=== PATIENT | male | born 1990 | race Caucasian/White ===

== ENCOUNTER 2018-06-15 18:35 | Emergency (ER) | payer BC ==
[2018-06-15 18:50] VITALS: BP 135/75
[2018-06-15] MEDS ORDERED: Lidocaine 1% 30 ML SDV INJECT ONE (19:33)
[2018-06-15] MEDS ORDERED: Sulfamethoxazole/Trimethoprim 800-160 MG Tab PO ONE (19:45)
--- NOTE | 2018-06-15 19:48 | EDM.PDOC ---
ED HPI GENERAL MEDICAL PROBLEM - General Chief Complaint: Skin Complaint Stated Complaint: ABSCESS ON FACE Time Seen by Provider: 06/15/18 19:35 Source of Information: Reports: Patient History Limitations: Reports: No Limitations - History of Present Illness INITIAL COMMENTS - FREE TEXT/NARRATIVE: This 27 yo male patient reports to the ED with an abscess to the left side of his face. The patient reports he started noticing swelling 5 days ago. The patient reports he attempted to pop a pimple 5 days ago and has noticed increased swelling since that time. The patient reports his mother has a history of MRSA. Onset Date: 06/10/18 Duration: Constant, Getting Worse Location: Reports: Face Quality: Reports: Ache, Dull Severity: Moderate Improves with: Reports: None Worsens with: Reports: None Associated Symptoms: Reports: No Other Symptoms Treatments [employer]: Reports: Acetaminophen Left Face/Facial Pain Score (Numeric/FACES): 7 - Related Data Allergies Allergy/AdvReac Type Severity Reaction Status Date / Time No Known Allergies Allergy Verified 06/15/18 18:45 Home Meds: Home Meds Amphetamine/Dextroamphetamine [Adderall XR] 25 mg PO DAILY 06/15/18 [History] Past Medical History - Past Health History Medical/Surgical History: Denies Medical/Surgical History Psychiatric History: Reports: ADD Social & Family History - Family History Family Medical History: Noncontributory - Tobacco Use Smoking Status *Q: Current Every Day Smoker Years of Tobacco use: 5 Packs/Tins Daily: 0.2 - Caffeine Use Caffeine Use: Reports: Soda - Recreational Drug Use Recreational Drug Use: No - Living Situation & Occupation Living situation: Reports: with Family Occupation: Employed ED ROS GENERAL - Review of Systems Review Of Systems: ROS reveals no pertinent complaints other than HPI. ED EXAM, SKIN/RASH Exam: See Below Exam Limited By: No Limitations General Appearance: Alert, WD/WN, Mild Distress Eye Exam: Bilateral Eye: EOMI, Normal Inspection, PERRL Ears: Normal External Exam, Normal Canal, Hearing Grossly Normal, Normal TMs Nose: Normal Inspection, Normal Mucosa, No Blood Throat/Mouth: Normal Inspection, Normal Lips, Normal Teeth, Normal Gums, Normal Oropharynx, Normal Voice, No Airway Compromise Head: Atraumatic, Normocephalic Neck: Normal Inspection, Supple, Non-Tender, Full Range of Motion Respiratory/Chest: No Respiratory Distress, Lungs Clear, Normal Breath Sounds, No Accessory Muscle Use, Chest Non-Tender Cardiovascular: Normal Peripheral Pulses, Regular Rate, Rhythm, No Edema, No Gallop, No JVD, No Murmur, No Rub GI/Abdominal: Normal Bowel Sounds, Soft, Non-Tender, No Organomegaly, No Distention, No Abnormal Bruit, No Mass (Male) Exam: Deferred Rectal (Males) Exam: Deferred Back Exam: Normal Inspection, Full Range of Motion, NT Extremities: Normal Inspection, Normal Range of Motion, Non-Tender, No Pedal Edema, Normal Capillary Refill Neurological: Alert, Oriented, CN II-XII Intact, Normal Cognition, Normal Gait, Normal Reflexes, No Motor/Sensory Deficits Psychiatric: Normal Affect, Normal Mood Skin: Erythema Location, Skin: Face (left cheek) Characteristics: Erythematous Associated features: Warmth, Tenderness, Swelling, Induration, Inflammation ED SKIN PROCEDURES - I&D Site: left face Skin Prep: Isopropyl Alcohol (Alcohol) Local Anesthesia: Lidocaine: 1% Plain Local Anesthetic Volume: 2cc Area Incised With: Needle Drainage: Purulent, Bloody, Moderate Amount Probed to Break Up Loculations: Yes Packed With: None Sterile Dressing: Adhesive Dressing Complications: No Course - Vital Signs Last Recorded V/S: Last Vital Signs Temp 37.1 C 06/15/18 18:47 Pulse 104 H 06/15/18 18:47 Resp 18 06/15/18 18:47 BP 135/75 06/15/18 18:47 Pulse Ox 97 06/15/18 18:47 - Orders/Labs/Meds Orders: Active Orders 24 hr Category Date Time Status CULTURE WOUND [RM] Stat Lab 06/15/18 19:41 Received Meds: Medications Discontinued Medications Generic Name Dose Route Start Last Admin Trade Name Suzanna PRN Reason Stop Dose Admin Lidocaine HCl 30 ml 06/15/18 19:33 06/15/18 19:39 Xylocaine-Mpf 1% INJECT 06/15/18 19:34 30 ml ONETIME ONE Administration Trimethoprim/Sulfamethoxazole 1 tab 06/15/18 19:45 06/15/18 19:48 Septra Ds PO 06/15/18 19:46 1 tab ONETIME ONE Administration Departure - Departure Time of Disposition: 19:46 Disposition: Home, Self-Care 01 Condition: Fair Clinical Impression: Facial abscess - Discharge Information *PRESCRIPTION DRUG MONITORING PROGRAM REVIEWED*: Not Applicable *COPY OF PRESCRIPTION DRUG MONITORING REPORT IN PATIENT JOHANA: Not Applicable Instructions: Skin Abscess, [id number] Forms: ED Department Discharge Care Plan Goals: The patient was advised of the examination results during the visit. The abscess was incised and drained during the visit. The patient was given an oral dose of Bactrim while in the ED. The patient was discharged with a script for Bactrim DS to take 1 by mouth 2 times per day for 10 days. If the patient has any additional symptoms or concerns, the patient should either return to the emergency department or visit his primary care facility. - My Orders Last 24 Hours: My Active Orders 06/15/18 19:41 CULTURE WOUND [RM] Stat - Assessment/Plan Last 24 Hours: My Active Orders 06/15/18 19:41 CULTURE WOUND [RM] Stat
== END 2018-06-15 19:51 | disposition home or self-care (01) ==
LOC: DL.ED 18:35
DX: L02.01 Cutaneous abscess of face (principal); F17.210 Nicotine dependence, cigarettes, uncomplicated
CPT/HCPCS: 10060; 87070; 87077; 87186; 99283; A9270; J2001